=== PATIENT | female | born 1990 ===

== ENCOUNTER 2022-06-25 14:52 | Outpatient (CLI) | payer OTHER | END 2022-06-25 16:54 | disposition home or self-care (01) | LOC: PRENATAL 14:52 | PROVIDERS: ATTEND Obstetrics & Gynecology Maternal & Fetal Medicine | DX: O35.9XX0 Maternal care for (suspected) fetal abnormality and damage, unspecified, not applicable or unspecified (principal); O35.3XX0 Maternal care for (suspected) damage to fetus from viral disease in mother, not applicable or unspecified; Z3A.22 22 weeks gestation of pregnancy ==

== ENCOUNTER 2022-08-31 10:52 | Outpatient (CLI) | payer OTHER | END 2022-08-31 12:00 | disposition home or self-care (01) | LOC: PRENATAL 10:52 | PROVIDERS: ATTEND Obstetrics & Gynecology Maternal & Fetal Medicine | DX: O26.849 Uterine size-date discrepancy, unspecified trimester (principal); O36.8199 Decreased fetal movements, unspecified trimester, other fetus; Z3A.32 32 weeks gestation of pregnancy ==

== ENCOUNTER 2022-10-01 09:23 | Outpatient (CLI) | payer OTHER ==
[~2022-10-01 09:23] MED LIST: HUMULIN N100 UNIT/2 SUBCUTANEO; INSULIN SYRING1 EA29 SUBCUTANEO
== END 2022-10-01 10:40 | disposition home or self-care (01) ==
LOC: PRENATAL 09:23
PROVIDERS: ATTEND Obstetrics & Gynecology Maternal & Fetal Medicine
DX: O26.849 Uterine size-date discrepancy, unspecified trimester (principal); O24.419 Gestational diabetes mellitus in pregnancy, unspecified control; O36.8199 Decreased fetal movements, unspecified trimester, other fetus; O35.9XX0 Maternal care for (suspected) fetal abnormality and damage, unspecified, not applicable or unspecified; Z3A.36 36 weeks gestation of pregnancy